=== PATIENT | male | born 1990 | race Caucasian/White ===

== ENCOUNTER 2021-09-17 10:38 | Emergency (ER) | payer SELFPAY ==
--- OUTSIDE RECORDS SUMMARY | 2021-09-17 10:42 | XMS REPORT | Continuity of Care Document ---
:1990 Author Organization [facility] t Address [address] [place] [address] Care Team Providers Name Role Phone Tej Rangel MD Primary Care Physician Doctor Unassigned, Name Attending Clinician Unavailable Andrea Monroe Attending Clinician MARTIN LOPEZ Attending Clinician Unavailable Problems Condition Condition Condition Status Onset Resolution Last Treating Co mments Source Name Details Category Date Date Treatment Clinician Date Obesity Obesity Disease Active 2016-0 Univers (BMI (BMI 7-03 ity of 30-39.9) 30-39.9) 00:00: [address] Allergies, Adverse Reactions, Alerts This patient has no known allergies or adverse reactions. Social History Social Habit Start Date Stop Date Quantity Comments Source Exposure to Not sure [facility] SARS-CoV-2 (event) [facility] Cigarettes smoked 2021-04-05 2021-04-05 Univers ity of current (pack per 00:00:00 00:00:00 ) - Reported Branch Cigarette 2021-04-05 2021-04-05 University of pack-years 00:00:00 00:00:00 [facility] Tobacco use and 2021-04-05 2021-04-05 Never used Universit y of exposure 00:00:00 00:00:00 [facility] Alcohol intake 2021-04-05 2021-04-05 Ex-drinker University of 00:00:00 00:00:00 (finding) [facility] [birth year] [facility] Smoking Status Start Date Stop Date Source Current every day smoker 2021-04[facility]05 [facility]:00[facility] Ordered Filled Start Stop Current Ordering Indication Dosage Frequency Signature Comments Components Source Medication Medication Date Date Medication? Clinician (SIG) Name Name SERTraline 2020-04 Yes [id number] Take 1/2 Univers (ZOLOFT) 50 2-22 tab po ity of mg tablet 00:00: daily x 1 Dangelo as 00 week. Then Medical increase Branch to 1 tab po daily. busPIRone 5 2020-04 Yes [id number] Take 0.5-1 Univers mg tablet 2-22 tab PO BID ity of 00:00: prn [place] 00 anxiety. [facility] Branch SERTraline 2020-04 Yes [id number] Take 1/2 Univers (ZOLOFT) 50 2-22 tab po ity of mg tablet 00:00: daily x 1 Dangelo as 00 week. Then Medical increase Branch to 1 tab po daily. busPIRone 5 2020-04 Yes [id number] Take 0.5-1 Univers mg tablet 2-22 tab PO BID ity of 00:00: prn [place] 00 anxiety. [facility] azithromyci 2020- [id number] 500mg Take 1 Univers n 500 mg 06-16 tablet by ity o f tablet 00:00: 00:00 mouth [place] 00 :00 daily. [facility] Vital Signs Vital Name Observation Time Observation Value Comments Source Systolic blood 2021-04-05 21:17:00 116 mm[Hg[facility] Diastolic blood 2021-04-05 21:17:00 72 mm[Hg] [facility] Heart rate 2021-04-05 21:17:00 91 /min [facility] Body height 2021-04-05 21:17:00 167.6 cm [facility] Body weight 2021-04-05 21:17:00 79.379 kg [facility] BMI 2021-04-05 21:17:00 28.25 kg/m2 Universi ty of [facility] Oxygen saturation 2021-04-05 21:17:00 98 /min [facility] in Arterial blood Medical Br anch by Pulse oximetry Procedures Procedure Date / Time Performed Performing Clinician [facility] e EXTERNAL PROVIDER 2021-05-09 06:01:00 Doctor Unapranav, No Univ [facility] RECORDS Name Medical Branch Encounters Start End Encounter Admission Attending Care Care Encounter Source Date/Time Date/Time Type Type Clinicians Facility Department ID 2021-05-09 2021-05-09 Orders Doctor LV [id number] Univers 00:00:00 00:00:00 Only Unassigned, MELINDA [id number] ity of [place] [facility] [id number] Dangelo as [id number] [address] 2021-04-05 2021-04-05 Office KATIE Browning [id number] Univers 15:00:00 16:04:08 Visit [facility] [id number] i ty of [place] [id number] Dangelo as RAY?BLEA [id number] Tn vik [address] MEDICAL OFFICE BUILDING 2021-03-18 2021-03-18 Emergency E ALCANTER, [facility] [facility] 11:30:00 15:38:00 ISABEL Results This patient has no known results.
[2021-09-17] MEDS ORDERED: NA CHLORIDE 0.9% 1,000 ML ONE (11:24)
[2021-09-17] MEDS ORDERED: ONDANSETRON 4 MG/2 ML VIAL ONE (11:24)
[2021-09-17 11:38] LABS: Absolute Lymphocytes (CBC) 1.6 K/uL (0.7-4.9); Lymphocytes % 26.7 % (15.3-44.8); MPV 8.1 fL (7.6-11.3); RBC Red Blood Cell Count 4.75 M/uL (4.33-5.43)
[2021-09-17 11:45] LABS: Albumin 4.1 g/dL (3.4-5.0); Bilirubin Total 0.2 mg/dL (0.2-1.0); Potassium 3.6 mmol/L (3.5-5.1); Protein, Total 7.5 g/dL (6.4-8.2)
--- NOTE | 2021-09-17 12:35 | ER ---
Nurse's Notes [facility] Name: Teto Lyon Age: 31 yrs Sex: Male : 1990 Arrival Date: 09/17/2021 Time: 10:42 Bed 16 Private MD: Diagnosis: Noninfective gastroenteritis and colitis, unspecified Presentation: 09/17 10:46 Chief complaint: Patient states: Diffuse abdominal pain, headache, nausea, chills, ph sweats, and diarrhea. Symptoms began Saturday, worse the last 2 days and has improved today. Coronavirus screen: Vaccine status: Patient reports being unvaccinated. Ebola Screen: No symptoms or risks identified at this time. Initial Sepsis Screen: Does the patient meet any 2 criteria? No. Patient's initial sepsis screen is negative. Does the patient have a suspected source of infection? No. Patient's initial sepsis screen is negative. Risk Assessment: Do you want to hurt yourself or someone else? Patient reports no desire to harm self or others. Onset of symptoms was September 17, 2021. 10:46 Method Of Arrival: Ambulatory ph 10:46 Acuity: RAMON 3 ph Historical: - Allergies: 10:48 No Known Allergies; ph - Home Meds: 10:48 None [Active]; ph - PMHx: 10:48 None; ph - PSHx: 10:48 None; ph - Immunization history:: Adult Immunizations unknown. - Social history:: Smoking status: Reported history of juuling and/or vaping. Patient uses alcohol, occasionally. Screenin:10 Abuse screen: Denies threats or abuse. Denies injuries from another. [facility] 11:10 Nutritional screening: Has had N/V for 3 or more days. Tuberculosis screening: No [facility] symptoms or risk factors identified. Fall Risk IV access (20 points). Assessment: 11:10 General: Appears in no apparent distress. Behavior is calm, cooperative, appropriate [facility] for age. Pain: Complains of pain in abdomen Pain currently is 2 out of 10 on a pain scale. Pain began 2-3 days ago. Is intermittent. 11:10 GI: Bowel sounds hyperactive in abdomen diffusely Abd is soft and non tender X 4 quads. jh6 Reports lower abdominal pain, upper abdominal pain, cramping, diarrhea. Vital Signs: 10:46 BP 143 / 107; Pulse 109; Resp 18; Temp 98.4; Pulse Ox 98% on R/A; Weight 86.18 kg; ph Height 5 ft. 6 in. (167.64 cm); Pain 2/10; 12:45 BP 136 / 90; Pulse 82; Resp 17; Temp 97.9(O); Pulse Ox 100% ; Pain 0/10; jh6 10:46 Body Mass Index 30.67 (86.18 kg, 167.64 cm) ph ED Course: 10:42 Patient arrived in ED. rg4 10:48 Triage completed. ph 10:49 Arm band placed on Patient placed in an exam room. ph 10:50 Ayanna Pinzon PA is PHCP. en 10:52 Abdullahi Bishop MD is Attending Physician. hernan 11:09 Zuly Oneal, MARGOTH is Primary Nurse. jh6 11:22 Inserted saline lock: 20 gauge in left antecubital area, using aseptic technique. Blood jh6 collected. 11:23 Bed in low position. Call light in reach. Side rails up X 1. Adult w/ patient. jh6 12:36 Javier Amin MD is Referral Physician. en 12:55 No provider procedures requiring assistance completed. IV discontinued, intact, jh6 bleeding controlled, No redness/swelling at site. Pressure dressing applied. Administered Medications: 11:21 Drug: NS 0.9% 1000 ml Route: IV; Rate: 1 bolus; Site: left antecubital; jh6 12:30 Follow up: IV Status: Completed infusion jh6 11:21 Drug: Zofran (Ondansetron) 4 mg Route: IVP; Site: left antecubital; jh6 12:35 CANCELLED (Duplicate Order): Maalox (aluminum hydroxide, magnesium hydroxide, en simethicone) Suspension (200 mg-200 mg-20 mg/5 mL) 30 ml PO once 12:40 Drug: GI Cocktail with - (Phenobarbital-Belladonna 10 ml, Maalox Suspension 30 jh6 ml, Lidocaine Liquid 2 % 20 ml) Route: PO; 12:40 Follow up: Response: No adverse reaction jh6 12:54 Follow up: Response: Marked relief of symptoms jh6 Medication: 11:24 VIS not applicable for this client. jh6 Outcome: 12:34 Discharge ordered by MD. cordon 12:56 Discharged to home ambulatory. [facility] 12:56 Condition: good 12:56 Discharge instructions given to patient, Instructed on discharge instructions, Demonstrated understanding of instructions, medications, Prescriptions given X 1, Following a medical screening exam, the patient was provided information regarding alternative care sites and resources available per registration personnel. 12:56 Patient left the ED. 6 Signatures: Abdullahi Bishop MD MD cha Hall, Patricia RN RN Feliz, Shelly 4 Zuly Oneal RN RN 6 Ayanna Pinzon PA PA en
--- NOTE | 2021-09-17 12:35 | EDPHYS ---
Physician Documentation [facility] Name: Teto Lyon Age: 31 yrs Sex: Male : 1990 Arrival Date: 09/17/2021 Time: 10:42 Bed 16 Private MD: ED Physician Abdullahi Bishop HPI: 09/17 11:02 This 31 yrs old Male presents to ER via Ambulatory with complaints of Abdominal Pain. en 11:02 The patient presents with abdominal pain in the upper abdomen. Onset: The en symptoms/episode began/occurred last week. The symptoms do not radiate. Associated signs and symptoms: Pertinent positives: diarrhea, nausea. The symptoms are described as crampy. Modifying factors: the symptoms are aggravated by food. Severity of pain: At its worst the pain was moderate in the emergency department the pain has improved. 31 yo M with intermittent, crampy, burning, nonradiating upper abdominal pain x 5 days. pt reports getting off of work and having a few drinks, pain, nausea and diarrhea started the next day. Reports > 10 episodes of nonbloody diarrhea but no vomiting. Sxs have improved but feels dehydrated.. Historical: - Allergies: 10:48 No Known Allergies; ph - Home Meds: 10:48 None [Active]; ph - PMHx: 10:48 None; ph - PSHx: 10:48 None; ph - Immunization history:: Adult Immunizations unknown. - Social history:: Smoking status: Reported history of juuling and/or vaping. Patient uses alcohol, occasionally. ROS: 11:02 Constitutional: Negative for fever, chills, and weight loss. en 11:02 Constitutional: Negative for body aches, chills, fatigue, fever. 11:02 Cardiovascular: Negative for chest pain. 11:02 Respiratory: Negative for cough. 11:02 Abdomen/GI: Positive for nausea, diarrhea, abdominal cramps. 11:02 Back: Negative for Exam: 11:02 Constitutional: This is a well developed, well nourished patient who is awake, alert, en and in no acute distress. 11:02 Constitutional: The patient appears in no acute distress, alert, awake. 11:02 Head/face: Exam is negative for acute changes. 11:02 Eyes: Exam is negative for icterus. 11:02 ENT: Mouth: Lips: dry, Oral mucosa: moist. 11:02 Chest/axilla: Inspection: normal. 11:02 Cardiovascular: Rate: normal, Rhythm: regular, Pulses: no pulse deficits are appreciated, Heart sounds: normal, no murmur, no rub, no gallop, Edema: is not appreciated. 11:02 Respiratory: the patient does not display signs of respiratory distress, Respirations: normal, Breath sounds: are clear throughout. 11:02 Abdomen/GI: Inspection: abdomen appears normal, Bowel sounds: normal, Palpation: soft, mildly TTP in the epigastrium without rebound or guarding. Negative [place], no TTP at [place]. No pulsetile masses. No CVA TTP. 11:02 Back: CVA tenderness, is absent. 11:02 Skin: no rash present. Turgor: is excellent. 11:02 Neuro: Exam negative for acute changes, Orientation: is normal, appropriate for stated age, no acute changes, to person, place \T\ time. 11:02 Psych: Behavior/mood is pleasant, cooperative, Affect is calm. Vital Signs: 10:46 BP 143 / 107; Pulse 109; Resp 18; Temp 98.4; Pulse Ox 98% on R/A; Weight 86.18 kg; ph Height 5 ft. 6 in. (167.64 cm); Pain 2/10; 12:45 BP 136 / 90; Pulse 82; Resp 17; Temp 97.9(O); Pulse Ox 100% ; Pain 0/10; jh6 10:46 Body Mass Index 30.67 (86.18 kg, 167.64 cm) ph MDM: 10:53 Patient medically screened. [facility] 11:02 Differential diagnosis: bowel obstruction, cholecystitis, Cholelithiasis, en diverticulitis, gastritis, gastroesophageal reflux disease, pancreatitis, Peptic Ulcer Disease. Data reviewed: vital signs, nurses notes, and as a result, I will administer IV fluids, will check labs and hydrate. 12:33 ED course: Pt feeling better but has epigastric burning. Will give GI cocktail prior to en d/c. He is tolerating po. Discussed EtOH gastritis and PCP f/u. 09/17 11:02 Order name: CBC with Diff; Complete Time: 12:32 en 09/17 11:02 Order name: CMP; Complete Time: 12:32 en 09/17 11:02 Order name: Lipase; Complete Time: 12:32 en 09/17 11:02 Order name: IV Saline Lock; Complete Time: 11:21 en 09/17 11:02 Order name: Labs collected and sent; Complete Time: 11:21 en Administered Medications: 11:21 Drug: NS 0.9% 1000 ml Route: IV; Rate: 1 bolus; Site: left antecubital; [facility] 12:30 Follow up: IV Status: Completed infusion [facility] 11:21 Drug: Zofran (Ondansetron) 4 mg Route: IVP; Site: left antecubital; [facility] 12:35 CANCELLED (Duplicate Order): Maalox (aluminum hydroxide, magnesium hydroxide, en simethicone) Suspension (200 mg-200 mg-20 mg/5 mL) 30 ml PO once 12:40 Drug: GI Cocktail with - (Phenobarbital-Belladonna 10 ml, Maalox Suspension 30 jh6 ml, Lidocaine Liquid 2 % 20 ml) Route: PO; 12:40 Follow up: Response: No adverse reaction [facility] 12:54 Follow up: Response: Marked relief of symptoms [facility] Disposition Summary: 09/17/21 12:34 Discharge Ordered Location: Home en Problem: new en Symptoms: have improved en Condition: Stable en Diagnosis - Noninfective gastroenteritis and colitis, unspecified en Followup: en - With: Javier Amin MD - When: As needed - Reason: Discharge Instructions: - Discharge Summary Sheet en - Gastritis, Adult, [id number] en - Viral Gastroenteritis, Adult, [id number] en Forms: - Medication Reconciliation Form en - Work release form [facility] - Thank You Letter en - Antibiotic Education en - Prescription Opioid Use en Prescriptions: - Zofran 4 mg Oral tablet - take 1 tablet by ORAL route 4 times per day; 20 tablet; Refills: 0, Product en Selection Permitted Signatures: Dispatcher [employer] EDAbdullahi Carcamo MD MD cha Hall, Patricia, RN RN ph Hastedt, Jennifer, RN RN [facility] Ayanna Pinzon PA PA en Corrections: (The following items were deleted from the chart) 12:35 12:35 Maalox (aluminum hydroxide, magnesium hydroxide, simethicone) Suspension (200 en mg-200 mg-20 mg/5 mL) 30 ml PO once ordered. en
[2021-09-17] MEDS ORDERED: MAGNES/ALUMIN/SIMET 30ML UCUP ONE (12:38)
[2021-09-17] MEDS ORDERED: LIDOCAINE VISCOUS 2% SOLN 15 ML UDC ONE (12:38)
[2021-09-17 13:06] VITALS: BP 136/90; TEMP 97.9; O2SAT 100
== END 2021-09-17 12:56 | disposition home or self-care (01) ==
LOC: ER 10:38
DX: K52.9 Noninfective gastroenteritis and colitis, unspecified (principal); F17.290 Nicotine dependence, other tobacco product, uncomplicated
CPT/HCPCS: 36415; 80053; 83690; 85025; 96361; 96374; 99284; J2405; J7030